=== PATIENT | female | born 1995 | race Caucasian/White ===

== ENCOUNTER 2017-10-25 15:32 | Emergency (ER) | payer SELFPAY ==
[~2017-10-25] VITALS: Ht 160 cm; Wt 49.9 kg
[~2017-10-25 15:32] MED LIST: GABA100 PO
[2017-10-25] MEDS ORDERED: Zofran Odt4 MG SL (16:47)
== END 2017-10-25 17:00 | disposition home or self-care (01) ==
LOC: ER 15:32
DX: S00.81XA Abrasion of other part of head, initial encounter (principal); Y04.8XXA Assault by other bodily force, initial encounter; F17.210 Nicotine dependence, cigarettes, uncomplicated
CPT/HCPCS: 90471; 90714; 96372; 99283; J1885